=== PATIENT | male | born 1975 | race Caucasian/White ===

== ENCOUNTER 2017-02-25 15:18 | Emergency (ER) | payer SELFPAY ==
[~2017-02-25] VITALS: Ht 188 cm; Wt 113.4 kg
[2017-02-25 16:23] LABS: BASOPHILS # (AUTO) 0.1 (0.0-0.1); BASOPHILS % 0.6 % (0.0-1.0); EOSINOPHILS # (AUTO) 0.1 (0.0-0.4); EOSINOPHILS % 1.5 % (0.0-6.0); HEMATOCRIT 45.4 % (38.2-49.6); HEMOGLOBIN 15.9 g/dL (14.0-18.0); LYMPHOCYTES # (AUTO) 1.8 (1.0-3.2); LYMPHOCYTES % 20.9 % (18.0-39.1); MEAN CORPUSCULAR HEMOGLOBIN 29.6 pg (28-32); MEAN CORPUSCULAR VOLUME 84.4 fL (81-99); MONOCYTES # (AUTO) 0.6 (0.2-0.8); MONOCYTES % 6.9 % (4.4-11.3); NEUTROPHILS # (AUTO) 6.1 (2.1-6.9); NEUTROPHILS % 69.8 % (38.7-80.0); PLATELET COUNT 318 x10e3/uL (140-360); RED BLOOD COUNT 5.38 x10e6/uL (4.3-5.7); RED CELL DISTRIBUTION WIDTH 12.5 % (11.7-14.4)
[2017-02-25 16:35] LABS: ALBUMIN 4.3 g/dL (3.5-5.0); ALBUMIN/GLOBULIN RATIO 1.2 (0.8-2.0); ANION GAP 17.4 mmol/L (8-16); CALCIUM 9.3 mg/dL (8.4-10.2); CREATININE, SERUM 1.31 mg/dL (0.72-1.25); POTASSIUM 3.4 mmol/L (3.5-5.1)
[2017-02-25 16:56] LABS: BILIRUBIN,URINE NEGATIVE (NEGATIVE); KETONES,URINE NEGATIVE (NEGATIVE); LEUKOCYTE ESTERASE ,URINE NEGATIVE (NEGATIVE); NITRITE,URINE NEGATIVE (NEGATIVE); URINE UROBILINOGEN 0.2 mg/dL (0.2 - 1)
[2017-02-25 17:02] LABS: CLARITY,URINE SL CLOUDY (CLEAR); COLOR,URINE YELLOW (YELLOW); PROTEIN,URINE DIPSTICK 1+ (NEGATIVE)
[2017-02-25] MEDS ORDERED: HYDROMORPHONE 1MG/1ML INJ IV STA (17:11)
[2017-02-25] MEDS ORDERED: SODIUM CHLORIDE 0.9% 1000ML 1,000 ML IV STA (17:11)
[2017-02-25] MEDS ORDERED: ONDANSETRON HCL INJ 2 MG/ML VIAL IV STA (17:11)
[2017-02-25] MEDS ORDERED: DIATRIZOATE MEGL/DIATRIZOA SOD 30 ML BTL PO ONE (17:18)
[2017-02-25 17:24] LABS: EPITHELIAL CELLS,URINE RARE /LPF; MUCUS,URINE FEW (RARE); WBC,URINE (MAN) 0-5 /HPF (0-5)
--- NOTE | 2017-02-25 19:00 | Diagnostic Imaging Report ---
PROCEDURE: CT ABDOMEN AND PELVIS WITH CONTRAST TECHNIQUE: The abdomen and pelvis were scanned utilizing a multidetector helical scanner from the diaphragm to the lesser trochanter after the IV administration of 100 cc Isovue 370 and the oral demonstration of water. Coronal and sagittal multiplanar reformations were obtained. COMPARISON: None. INDICATIONS: RIGHT SIDE ABDOMINAL PAIN FINDINGS: LOWER THORAX: Linear atelectasis in the right lower lobe. Calcified granuloma left lower lobe. No pleural or pericardial effusion. HEPATOBILIARY: No focal hepatic lesions. No biliary ductal dilatation. SPLEEN: No splenomegaly. PANCREAS: No focal masses or ductal dilatation. ADRENALS: No adrenal nodules. KIDNEYS/URETERS: Mild right hydroureteronephrosis secondary to a 4 mm calculus at the distal right ureter seen on series 2 image 87. No additional renal, ureteral, or bladder calculi. No solid or cystic renal mass lesion. PELVIC ORGANS/BLADDER: Urinary bladder is unremarkable. Prostate and seminal vesicles appear normal. PERITONEUM / RETROPERITONEUM: No ascites. No pneumoperitoneum. LYMPH NODES: No pelvic sidewall, retroperitoneal, or mesenteric lymphadenopathy. VESSELS: The abdominal aorta, major branch vessels, and iliac arterial systems are well-visualized and patent. Hepatic arterial anatomy appears conventional. Portal vein, splenic vein, and central superior mesenteric vein are patent. GI TRACT: Large bowel shows no evidence of distention or wall thickening. The appendix is normal. No small bowel dilatation to suggest obstruction. BONES AND SOFT TISSUES: No focal soft tissue abnormalities. No osseous destructive lesions. IMPRESSION: 4 mm distal right ureteral calculus results in mild hydroureteronephrosis. Dictated by: Marcio Toledo M.D. on 02/25/2017 at 19:08 Electronically approved by: Marcio Toledo M.D. on 02/25/2017 at 19:08
[2017-02-25 20:38] VITALS: BP 124/89
[2017-02-25] MEDS ORDERED: IOPAMIDOL 370 MG/ML 200 ML INFUS..BTL INJ ONE (22:51)
[2017-02-25] MEDS ORDERED: SODIUM CHLORIDE 0.9% 50ML 50 ML ONE (22:51)
== END 2017-02-25 20:45 | disposition home or self-care (01) ==
LOC: ER 15:18
DX: R10.31 Right lower quadrant pain (principal); R11.0 Nausea; N20.1 Calculus of ureter
CPT/HCPCS: 36415; 74177; 80053; 81001; 85025; 87086; 99284; J1170; J2405; J7030; Q9967